=== PATIENT | female | born 1995 | race Caucasian/White ===

== ENCOUNTER 2016-11-27 15:05 | Emergency (ER) | payer OTHER ==
[~2016-11-27] VITALS: Ht 160 cm; Wt 60.3 kg
[2016-11-27] MEDS ORDERED: HYDROXYZINE HCL25 M2 PO (16:47)
[2016-11-27] MEDS ORDERED: KARIVA 28 DAY1 EACH PO (16:47)
[2016-11-27] MEDS ORDERED: CLONAZEPAM0.5 M2 PO (16:47)
[2016-11-27] MEDS ORDERED: FLUOXETINE HCL40 M1 PO (16:47)
--- NOTE | 2016-11-27 17:03 | ED CARDIAC/CP/PALPITATIONS ---
History of Present Illness General Chief Complaint: Chest Pain Stated Complaint: CHEST PAIN,WEAK AND DIZZY Source: patient Exam Limitations: no limitations Vital Signs & Intake/Output Vital Signs & Intake/Output Vital Signs Date Time Temp Pulse Resp B/P B/P Pulse O2 O2 Flow FiO2 Mean Ox Delivery Rate 11/27 2045 98.7 81 18 122/77 100 11/27 1802 98.7 89 18 130/83 99 11/27 1615 Room Air 11/27 1525 99.6 91 16 136/89 99 Room Air Allergies Coded Allergies: eucalyptus (HIVES, RASH 11/27/16) Reconcile Medications Clonazepam 0.5 MG TABLET 1 TAB PO BIDP PRN ANXIETY (Reported) Clonazepam 0.25 MG TAB.RAPDIS 1 TAB PO BID PRN ANXIETY Desog-E.estradiol/E.estradiol (Kariva 28 Day Tablet) 0.15 MG-0.02 MG (21)/0.01 MG (5) TABLET 1 TAB PO DAILY CONTROL (Reported) Fluoxetine HCl 40 MG CAPSULE 1 CAP PO DAILY MENTAL HEALTH (Reported) Fluoxetine HCl (Prozac) 40 MG CAPSULE 1 CAP PO DAILY MOOD DISORDER Hydroxyzine HCl 25 MG TABLET 1 TAB PO TID PRN ANXIETY (Reported) Triage Note: C/O C/P AND NAUSEA AND SHOCKS THROUGH HER BODY X3-4 DAYS. C/O FEELING DIZZY AND WEAK. D/C'ED PROZAC ABOUT A MONTH AGO. HX HIGH CHOLESTEROL AND FAMILY HX PATERNAL FROM [place]. STATES PAIN IS LOW MID STERNAL AND RADIATES INTO CENTER OF BACK. PAIN INCREASED WITH PALPATION TO AREA. ENDORSES POOR SLEEP AND DIET LATELY WITH EATING DIS HX Triage Nurses Notes Reviewed? yes Onset: Gradual Duration: constant Timing: recent history Location: substernal Radiation: no radiation Activities at Onset: none : No Patient currently breastfeeds: No HPI: Patient is a 21-year-old female with a past medical history of anxiety and depression and hyperlipidemia who she states that 3 weeks ago she self discontinued clonazepam hydralazine and Prozac because patient had her wisdom teeth taken out. Patient was prescribed Percocet for her pain and states that she had dry socket where she continue the Percocet up until recently however patient did not reestablish her previously prescribed medications for her anxiety and depression. Patient states that for some time now she's had total body shocking sensation however last 24 hours she's been complaining of chest pain that radiates to her back. Patient is on an oral contraceptive. Denies any fever chills headache hemoptysis arm pain jaw pain nausea vomiting leg swelling Denies any illicit drug use Patient was concerned because her father at a young age due to myocardial infarction in his 40s (DOT MAZARIEGOS) Past History Travel History Traveled to [place] past 21 day No Medical History Any Pertinent Medical History? see below for history Neurological: NONE EENT: NONE Cardiovascular: hyperlipidemia Respiratory: NONE Gastrointestinal: NONE Hepatic: NONE Renal: NONE Musculoskeletal: NONE Psychiatric: anxiety, depression, EATING DISORDER Endocrine: NONE Blood Disorders: NONE Cancer(s): NONE Surgical History Surgical History: non-contributory Psychosocial History What is your primary language Filipino Tobacco Use: Never used ETOH Use: occasional use Illicit Drug Use: denies illicit drug use Family History Hx Contributory? No (DOT MAZARIEGOS) Review of Systems Review of Systems Constitutional: Reports: no symptoms. EENTM: Reports: no symptoms. Respiratory: Reports: see HPI. Denies: cough, short of breath. Cardiovascular: Reports: see HPI, chest pain. GI: Reports: no symptoms. Genitourinary: Reports: no symptoms. Musculoskeletal: Reports: no symptoms. Skin: Reports: no symptoms. Neurological/Psychological: Reports: see HPI, anxiety. Hematologic/Endocrine: Reports: no symptoms. Immunologic/Allergic: Reports: no symptoms. All Other Systems: Reviewed and Negative (DOT MAZARIEGOS) Physical Exam Physical Exam General Appearance: no apparent distress, alert Cardiovascular: regular rate/rhythm Comments: Well-developed well-nourished person in no acute distress HEENT: Normal EENT exam, extraocular motion intact, no nystagmus. Pupils equally round and reactive to light and accommodation. Nose is atraumatic. External auditory canal and Tympanic membranes clear. Pharynx normal. No swelling or edema. Neck: Supple, no lymphadenopathy, normal range of motion without pain or tenderness Back: Nontender, no CVA tenderness. Full range of motion Cardiovascular: Regular rate and rhythms no murmurs rubs or gallops, normal JVP Respiratory: Chest nontender. No respiratory distress.breath sounds clear to auscultation bilaterally Abdomen: Soft, nontender nondistended, no appreciable organomegaly. Normal bowel sounds. No ascites Extremity: No edema, no calf tenderness to palpation, normal and equal pulses. Neuro: Alert oriented x3, motor sensory normal, cranial nerves II through XII grossly intact. Skin: No appreciable rash on exposed skin, skin is warm and dry. Psych: Mood and affect is normal, memory and judgment is normal. Core Measures ACS in differential dx? Yes Severe Sepsis Present: No Septic Shock Present: No (MICKIE YO,DOT) Progress Differential Diagnosis: AMI, aortic dissection, atrial fibrillation, cholecystitis, CHF/pulm edema, costochondritis, hyperkalemia, hypovolemia, hyperthyroid, hyperventilation, intracranial hemorrhage, musculoskeletal pain, myocarditis, pancreatitis, pericarditis, pneumonia, pneumothorax, PSVT, pulmonary embolism, PUD/GERD, PVCs/PACs, respiratory failure, rib fracture, sepsis, unstable angina, V-fib/V-Tach, WPW syndrome Plan of Care: Orders Procedure Date/time Status Telemetry/Cutting Machine Tender 11/27 1725 Active Add-on Test (ER Only) 11/27 1716 Active Add-on Test (ER Only) 11/27 1645 Active D-DIMER 11/27 1635 Complete URINE 11/27 1620 Complete URINE DRUG SCREEN FOR ER ONLY 11/27 1620 Complete URINALYSIS 11/27 1620 Complete THYROID STIMULATING HORMONE 11/27 1620 Complete TROPONIN LEVEL 11/27 1620 Complete THYROXINE 11/27 1620 Complete COMPREHENSIVE METABOLIC PANEL 11/27 1620 Complete CBC WITHOUT DIFFERENTIAL 11/27 1620 Complete EKG 11/27 1506 Active Laboratory Tests 11/27/162028: Anion Gap 9, Estimated GFR > 60, BUN/Creatinine Ratio 25.0, Glucose 83, Calcium 9.3, Total Bilirubin 0.3, AST 16, ALT 23, Alkaline Phosphatase 64, Troponin I < 0.01, Total Protein 6.6, Albumin 3.6, Globulin 3.0, Albumin/Globulin Ratio 1.2, TSH 2.200, Thyroxine (T4) 12.6 H 11/27/16 1716: D-Dimer Cancelled 11/27/16 1635: D-Dimer 574 H, CBC w Diff NO MAN DIFF REQ, RBC 4.60, MCV 84.1, MCH 27.5, RDW 12.6, MPV 9.5, Gran % 43.6, Lymphocytes % 42.5, Monocytes % 11.0 H, Eosinophils % 2.6, Basophils % 0.3, Absolute Granulocytes 2.5, Absolute Lymphocytes 2.5, Absolute Monocytes 0.6, Absolute Eosinophils 0.2, Absolute Basophils 0, PUBS MCHC 32.7 L 11/27/16 1625: Urine Opiates Screen < 100.00, Methadone Screen < 40, Barbiturate Screen < 60, Ur Phencyclidine Scrn < 6.00, Amphetamines Screen < 100, U Benzodiazepines Scrn < 85, Urine Cocaine Screen < 50, Urine Cannabis Screen < 5.00, Urine Color YEL, Urine Clarity CLEAR, Urine pH 6.0, Ur Specific Bowman 1.015, Urine Protein NEG, Urine Ketones NEG, Urine Nitrite NEG, Urine Bilirubin NEG, Urine Urobilinogen 0.2, Ur Leukocyte Esterase NEG, Ur Microscopic EXAM NOT REQUIRED, Urine Hemoglobin NEG, Urine Glucose NEG, Urine Test NEGATIVE Patient is currently resting comfortably at bedside. Patient had elevated d-dimer which WARRANTS patient to receive CT scan angios to rule out pulmonary embolism which CT scan was resulted showing unremarkable findings. Patient's blood work also was unremarkable say patient was on telemetry monitored noted to be in normal sinus rhythm. Patient didn't request ibuprofen due to headache which after all blood work was resulted this was afforded patient. I strongly advised patient to re-continue previously prescribed medications for anxiety and depression which she states that she was out of her Prozac and Klonopin. Patient was strongly advised to follow-up with the provider on Wednesday which mom and patient will comply with discharge instructions and patient had no questions. (MICKIE YO,DOT) Diagnostic Imaging: Viewed by Me: Radiology Read, CT Scan. Radiology Impression: no acute abnormality Initial ED EKG: NSR, 100 BPM Comments: PATIENT: FEDE ZAVALA PRESENT AGE: 21 PATIENT ACCOUNT NO: [id number] : 96 LOCATION: [facility] ORDERING PHYSICIAN: DOT YO SERVICE DATE: 11/27/16 EXAM TYPE: CAT - CTA CHEST-PULMONARY EMBOLISM EXAMINATION: CT ANGIOGRAM OF THE CHEST WITH AND WITHOUT CONTRAST (CT PULMONARY ANGIOGRAM FOR PE) CLINICAL INFORMATION: Dx: CHEST PAIN, ELEVATED DIMER COMPARISON: Chest x-ray 11/27/2016 TECHNIQUE: Prior to contrast administration, noncontrast localization images were obtained. Subsequently, multidetector volumetric imaging was performed from the thoracic inlet to below the diaphragms following the administration of 60 mL Optiray 350 intravenous contrast. No contrast reaction reported. Sagittal, coronal, and MIP oblique sagittal reformatted images were obtained on the CT workstation, uploaded to PACS, and reviewed. Total exam dose-length product 200.1 mGy-cm. FINDINGS: QUALITY OF STUDY/CONTRAST BOLUS: Satisfactory PULMONARY ARTERIES: No central or segmental pulmonary emboli. THORACIC AORTA: No aneurysm or dissection. LUNG: No focal consolidation, nodules or masses. PLEURA: No pleural effusion or pneumothorax. MEDIASTINUM: Normal heart size. No pericardial effusion. No hilar or mediastinal lymphadenopathy. No evidence of septal bowing or right heart strain. CHEST WALL/AXILLA: No axillary or internal mammary lymphadenopathy. OSSEOUS STRUCTURES: No acute or suspicious osseous abnormality. UPPER ABDOMEN: Unremarkable. No reflux of contrast into the hepatic veins to suggest elevated right heart pressures. IMPRESSION: Normal CT of chest. No evidence of pulmonary embolism. VTE: negative DICTATED BY: CORTEZ CHAVEZ MD DATE/TIME DICTATED:11/27/162027 DEPORTATION OFFICER:FAVIAN DATE/TIME TRANSCRIBED:11/27/162027 CONFIDENTIAL, DO NOT COPY WITHOUT APPROPRIATE AUTHORIZATION. <Electronically signed in Other Vendor System> PATIENT: FEDE ZAVALA PRESENT AGE: 21 PATIENT ACCOUNT NO: [id number] : 96 LOCATION: [facility] ORDERING PHYSICIAN: DOT YO SERVICE DATE: 11/27/16 EXAM TYPE: RAD - XRY-CHEST XRAY, PA AND LATERAL EXAMINATION: CHEST 2 VIEWS CLINICAL INFORMATION: Chest pain. COMPARISON: None. TECHNIQUE: PA and lateral views of the chest were obtained. FINDINGS: The cardiac silhouette is not enlarged. The mediastinal and hilar contours are unremarkable. There are neither pleural effusions nor pneumothoraces. There are no consolidations. The osseous structures are unremarkable. IMPRESSION: No evidence for acute disease. DICTATED BY: JULIO HARTMAN MD DATE/TIME DICTATED:11/27/161755 DEPORTATION OFFICER:FAVIAN (DOT MAZARIEGOS) Departure Departure Disposition: HOME OR SELF CARE Condition: Stable Clinical Impression Primary Impression: Chest pain Secondary Impressions: Anxiety, Headache Referrals: ROSINA CHAMPAGNE MD (PCP/Family) Additional Instructions: As discussed please follow up with bench assembler electrical on Xiang for recheck of symptoms and please provide bench assembler electrical with blood work copies and CT scan and x-ray copies administered in the emergency room. Please we continue previously prescribed medications for your symptoms. If symptoms worsen return to emergency room. Begin [id number] ibuprofen if needed for headache and pain Departure Forms: Customer Survey General Discharge Information Prescriptions: Current Visit Scripts Fluoxetine HCl (Prozac) 1 CAP PO DAILY #7 CAP Clonazepam 1 TAB PO BID PRN ANXIETY #10 TAB (DOT MAZARIEGOS) PA/ORCHID HAND Co-Sign Statement Statement: ED Attending supervision documentation- [] I saw and evaluated the patient. I have also reviewed all the pertinent lab results and diagnostic results. I agree with the findings and the plan of care as documented in the PA's/ORCHID HAND's documentation. [x] I have reviewed the ED Record and agree with the PA's/ORCHID HAND's documentation. [] Additions or exceptions (if any) to the PAs/ORCHID HAND's note and plan are summarized below: [] (PRABHJOT COLLIER,BABAK Wall) Critical Care Note Critical Care Note Critical Care Time: non-applicable (DOT MAZARIEGOS)
[2016-11-27 17:21] LABS: ABSOLUTE BASOPHIL COUNT 0 /CUMM (0.0-0.2); ABSOLUTE EOSINOPHIL COUNT 0.2 /CUMM (0.0-0.7); ABSOLUTE GRANULOCYTE CT 2.5 /CUMM (1.4-6.5); ABSOLUTE LYMPH COUNT 2.5 /CUMM (1.2-3.4); ABSOLUTE MONOCYTE COUNT 0.6 /CUMM (0.10-0.60); BASOPHIL % 0.3 % (0.0-2.0); EOSINOPHIL % 2.6 % (0-5); GRANULOCYTE % 43.6 % (42.2-75.2); HEMATOCRIT 38.7 % (37-47); MEAN CORPUSCULAR HGB 27.5 PG (27.0-31.0); MEAN CORPUSCULAR HGB CONC 32.7 G/DL (33.0-37.0); MEAN CORPUSCULAR VOLUME 84.1 FL (81.0-99.0); MEAN PLATELET VOLUME 9.5 FL (7.4-10.4); PLATELET COUNT 296 /CUMM (130-400); RBC DISTRIBUTION WIDTH 12.6 % (11.5-14.5); WHITE BLOOD CELL COUNT 5.8 /CUMM (4.8-10.8)
--- NOTE | 2016-11-27 18:00 | RADIOLOGY REPORT ---
EXAMINATION: CHEST 2 VIEWS CLINICAL INFORMATION: Chest pain. COMPARISON: None. TECHNIQUE: PA and lateral views of the chest were obtained. FINDINGS: The cardiac silhouette is not enlarged. The mediastinal and hilar contours are unremarkable. There are neither pleural effusions nor pneumothoraces. There are no consolidations. The osseous structures are unremarkable. IMPRESSION: No evidence for acute disease.
--- NOTE | 2016-11-27 20:40 | CT SCAN REPORT ---
EXAMINATION: CT ANGIOGRAM OF THE CHEST WITH AND WITHOUT CONTRAST (CT PULMONARY ANGIOGRAM FOR PE) CLINICAL INFORMATION: Dx: CHEST PAIN, ELEVATED DIMER COMPARISON: Chest x-ray 11/27/2016 TECHNIQUE: Prior to contrast administration, noncontrast localization images were obtained. Subsequently, multidetector volumetric imaging was performed from the thoracic inlet to below the diaphragms following the administration of 60 mL Optiray 350 intravenous contrast. No contrast reaction reported. Sagittal, coronal, and MIP oblique sagittal reformatted images were obtained on the CT workstation, uploaded to PACS, and reviewed. Total exam dose-length product 200.1 mGy-cm. FINDINGS: QUALITY OF STUDY/CONTRAST BOLUS: Satisfactory PULMONARY ARTERIES: No central or segmental pulmonary emboli. THORACIC AORTA: No aneurysm or dissection. LUNG: No focal consolidation, nodules or masses. PLEURA: No pleural effusion or pneumothorax. MEDIASTINUM: Normal heart size. No pericardial effusion. No hilar or mediastinal lymphadenopathy. No evidence of septal bowing or right heart strain. CHEST WALL/AXILLA: No axillary or internal mammary lymphadenopathy. OSSEOUS STRUCTURES: No acute or suspicious osseous abnormality. UPPER ABDOMEN: Unremarkable. No reflux of contrast into the hepatic veins to suggest elevated right heart pressures. IMPRESSION: Normal CT of chest. No evidence of pulmonary embolism. VTE: negative
[2016-11-27 20:46] VITALS: BP 122/77
[2016-11-27] MEDS ORDERED: PROZAC40 M1 PO (22:07)
[2016-11-27] MEDS ORDERED: CLONAZEPAM0.25 M1 PO (22:07)
== END 2016-11-27 22:05 ==
LOC: ERH 15:05
PROVIDERS: Physician Assistant
DX: R07.9 Chest pain, unspecified (principal); F41.9 Anxiety disorder, unspecified; R51 Headache
CPT/HCPCS: 80307; 81003; 81025; 93005; 93010

== ENCOUNTER 2018-04-20 23:53 | Emergency (ER) | payer OTHER ==
[~2018-04-20] VITALS: Ht 160 cm; Wt 59.0 kg
[~2018-04-20 23:53] MED LIST: CLONAZEPAM0.25 M1 PO; CLONAZEPAM0.5 M2 PO; FLUOXETINE HCL40 M1 PO; HYDROXYZINE HCL25 M2 PO; KARIVA 28 DAY1 EACH PO; PROZAC40 M1 PO
[2018-04-21] MEDS ORDERED: BUPROPION XL150 MG PO (00:28)
[2018-04-21 00:30] VITALS: BP 135/80
[2018-04-21] MEDS ORDERED: TRAZODONE HCL50 M1 PO (00:30)
[2018-04-21 00:48] LABS: ABSOLUTE BASOPHIL COUNT 0 /CUMM (0.0-0.2); ABSOLUTE EOSINOPHIL COUNT 0.1 /CUMM (0.0-0.7); ABSOLUTE GRANULOCYTE CT 4.3 /CUMM (1.4-6.5); ABSOLUTE LYMPH COUNT 3.1 /CUMM (1.2-3.4); ABSOLUTE MONOCYTE COUNT 0.5 /CUMM (0.10-0.60); BASOPHIL % 0.2 % (0.0-2.0); EOSINOPHIL % 0.9 % (0-5); GRANULOCYTE % 53.5 % (42.2-75.2); HEMATOCRIT 37.3 % (37-47); MEAN CORPUSCULAR HGB 28.5 PG (27.0-31.0); MEAN CORPUSCULAR HGB CONC 33.5 G/DL (33.0-37.0); MEAN CORPUSCULAR VOLUME 84.9 FL (81.0-99.0); MEAN PLATELET VOLUME 9.9 FL (7.4-10.4); PLATELET COUNT 245 /CUMM (130-400); RBC DISTRIBUTION WIDTH 13.1 % (11.5-14.5); RED BLOOD CELL CT 4.39 /CUMM (4.20-5.40)
--- NOTE | 2018-04-21 01:02 | ED GENERAL ADULT ---
History of Present Illness General Chief Complaint: General Adult Stated Complaint: GEN ADULT Source: patient Exam Limitations: no limitations Vital Signs & Intake/Output Vital Signs & Intake/Output Vital Signs Date Time Temp Pulse Resp B/P B/P Pulse O2 O2 Flow FiO2 Mean Ox Delivery Rate 04/21 0030 98.5 88 16 135/80 98 Room Air Room Air Allergies Coded Allergies: eucalyptus (HIVES, RASH 11/27/16) Reconcile Medications Bupropion HCl (Bupropion XL) 150 MG TAB.ER.24H 1 TAB PO QAM DEPRESSION ( Reported) Clonazepam 0.5 MG TABLET 1 TAB PO BIDP PRN ANXIETY (Reported) Clonazepam 0.25 MG TAB.RAPDIS 1 TAB PO BID PRN ANXIETY Desog-E.estradiol/E.estradiol (Kariva 28 Day Tablet) 0.15 MG-0.02 MG (21)/0.01 MG (5) TABLET 1 TAB PO DAILY CONTROL (Reported) Fluoxetine HCl 40 MG CAPSULE 1 CAP PO DAILY MENTAL HEALTH (Reported) Fluoxetine HCl (Prozac) 40 MG CAPSULE 1 CAP PO DAILY MOOD DISORDER Hydroxyzine Hydrochloride (Atarax) 25 MG TABLET 1 TAB PO TID PRN ANXIETY ( Reported) Trazodone HCl 50 MG TABLET 1 TAB PO QPM FOR SLEEP (Reported) Triage Note: PT TO TRIAGE WITH CHEST PAIN SINCE WAKING THIS MORNING. PT TOOK ATIVAN WITHOUT RELIEF. PT STATES THROUGH OUT TODAY IS HAS BECOME WORSE, IT GOES INTO HER BACK. Triage Nurses Notes Reviewed? yes Onset: Abrupt Duration: hour(s): Timing: constant : No Patient currently breastfeeds: No HPI: 22-year-old female with a history of hyperlipidemia, anxiety, depression presenting with chest pain and shortness of breath since this morning. Patient reports that she was abruptly woken up from sleep around 4 AM with chest pain and shortness of breath. She thought maybe it was her anxiety with an anxiety attack so she took an Ativan. She is unsure if this relieved her symptoms, but states that it made her fall back to sleep. She woke up a few hours later and still had some residual chest pain with shortness of breath. She states that the pain has been getting progressively worse throughout the day and now radiates through to her back. There are no worsening or alleviating factors. She is currently on oral contraceptive pills with both estrogen and progesterone components. She also recently had a long flight out of the country. She has no prior history of blood clots. Denies any recent cough or hemoptysis. No prior cardiac disease. No family history of sudden cardiac at a young age. Patient states that she thinks the symptoms are likely anxiety related, but she would like to be evaluated for PE given her risk factors with recent travel and OCPs. (Fallon Patel) Past History Travel History Traveled to [place] past 21 day No Medical History Any Pertinent Medical History? see below for history Neurological: NONE EENT: NONE Cardiovascular: hyperlipidemia Respiratory: NONE Gastrointestinal: NONE Hepatic: NONE Renal: NONE Musculoskeletal: NONE Psychiatric: anxiety, depression, EATING DISORDER Endocrine: NONE Blood Disorders: NONE Cancer(s): NONE Surgical History Surgical History: non-contributory Psychosocial History What is your primary language Mongolian Tobacco Use: Never used ETOH Use: occasional use Illicit Drug Use: denies illicit drug use Family History Hx Contributory? No (Fallon Patel) Review of Systems Review of Systems Constitutional: Reports: no symptoms. EENTM: Reports: no symptoms. Respiratory: Reports: see HPI. Cardiovascular: Reports: see HPI. GI: Reports: no symptoms. Genitourinary: Reports: no symptoms. Musculoskeletal: Reports: no symptoms. Skin: Reports: no symptoms. Neurological/Psychological: Reports: no symptoms. Hematologic/Endocrine: Reports: no symptoms. Immunologic/Allergic: Reports: no symptoms. All Other Systems: Reviewed and Negative (Fallon Patel) Physical Exam Physical Exam General Appearance: well developed/nourished, no apparent distress, alert, awake Comments: Gen.: Well-nourished, well-developed, no acute distress. Head: Normocephalic, atraumatic. Eyes: Normal inspection bilaterally Ears: Normal inspection bilaterally Nose: Normal inspection Neck: Normal inspection Lungs: clear to auscultation bilaterally, normnal breath sounds, chest wall nontender Heart: regular rate and rhythm Abdomen: soft and non-tender Extremities: Normal inspection Neurologic: alert and oriented x3, steady gait Skin: warm and dry Psychiatric: Normal mood and affect, no apparent delusions or hallucinations, behavior appropriate Core Measures ACS in differential dx? No CVA/TIA Diagnosis: No Sepsis Present: No Sepsis Focused Exam Completed? No (Fallon Paetl) Progress Differential Diagnoses I considered the following diagnoses in my evaluation of the patient: [Anxiety versus PE, low concern for ACS versus angina versus aortic dissection versus Boerhaave's versus tamponade versus pericardial effusion] Plan of Care: Orders Procedure Date/time Status Add-on Test (ER Only) 04/21 36 Active HUMAN BETA HCG SCREEN 04/21 32 Complete D-DIMER 04/21 15 Complete COMPREHENSIVE METABOLIC PANEL 04/21 15 Complete CBC WITHOUT DIFFERENTIAL 04/21 15 Complete EKG 04/21 15 Active Laboratory Tests 04/21/1831: Anion Gap 7, Estimated GFR > 60, BUN/Creatinine Ratio 18.6, Glucose 85, Calcium 9.0, Total Bilirubin 0.3, AST 19, ALT 23, Alkaline Phosphatase 60, Total Protein 7.0, Albumin 4.1, Globulin 2.9, Albumin/Globulin Ratio 1.4, Total Beta HCG NEGATIVE, D-Dimer High Sensitivty 215, CBC w Diff NO MAN DIFF REQ, RBC 4.39, MCV 84.9, MCH 28.5, MCHC 33.5, RDW 13.1, MPV 9.9, Gran % 53.5, Lymphocytes % 38.7, Monocytes % 6.7, Eosinophils % 0.9, Basophils % 0.2, Absolute Granulocytes 4.3, Absolute Lymphocytes 3.1, Absolute Monocytes 0.5, Absolute Eosinophils 0.1, Absolute Basophils 0 EKG showed mild sinus tachycardia to 102 Labs are unremarkable including negative d-dimer Chest x-ray pending Patient symptoms are likely anxiety related. She will continue using her home anxiety medications as prescribed. Will follow up with her PMD for further evaluation. Given strict return precautions. Patient signed out to Dr. Cintron with chest x-ray pending. Plan is for discharge as above after chest x-ray if normal. Initial ED EKG: rhythm (sinus tach to 102), no ST T wave changes (Fallon Patel) Departure Departure Disposition: HOME OR SELF CARE Condition: Stable Clinical Impression Primary Impression: Chest pain Secondary Impressions: Shortness of breath Referrals: Patient Has No Primary Care Dr (PCP/Family) Additional Instructions: Continue using her home anxiety medications as prescribed. Follow-up with your primary care provider for reevaluation. Return to the emergency department for any new or worsening symptoms. Departure Forms: Customer Survey General Discharge Information (Fallon Patel) Departure Time of Disposition: 244 PA/RADIOACTIVITY TECHNICIAN Co-Sign Statement Statement: ED Attending supervision documentation- I saw and evaluated the patient. I have also reviewed all the pertinent lab results and diagnostic results. I agree with the findings and the plan of care as documented in the PA's/RADIOACTIVITY TECHNICIAN's documentation. x I have reviewed the ED Record and agree with the PA's/RADIOACTIVITY TECHNICIAN's documentation. [] Additions or exceptions (if any) to the PAs/RADIOACTIVITY TECHNICIAN's note and plan are summarized below: [] (Saida COLLIER,[place]) Critical Care Note Critical Care Note Critical Care Time: non-applicable (Fallon Patel)
--- NOTE | 2018-04-21 02:44 | RADIOLOGY REPORT ---
EXAMINATION: XR PORTABLE CHEST CLINICAL INFORMATION: Chest pain COMPARISON: 11/27/2016 TECHNIQUE: Portable frontal view of the chest was obtained. FINDINGS: Lung volumes are symmetric. No focal consolidation is seen. No appreciable pneumothorax, though the lung apices are not fully included in the [id number]. No pleural effusion or pulmonary edema. The cardiomediastinal contour is unremarkable. No acute osseous findings are seen. IMPRESSION: No acute cardiopulmonary findings. The lung apices are not fully included in the [id number], which limits detection of small pneumothoraces.
== END 2018-04-21 02:45 ==
LOC: ERH 23:53
PROVIDERS: Physician Assistant
DX: R07.9 Chest pain, unspecified (principal); R06.02 Shortness of breath; E78.5 Hyperlipidemia, unspecified; F41.9 Anxiety disorder, unspecified; F32.9 Major depressive disorder, single episode, unspecified; F10.10 Alcohol abuse, uncomplicated; F50.9 Eating disorder, unspecified
CPT/HCPCS: 71045; 93005; 93010